=== PATIENT | male | born 1960 | race African-American/Black ===

== ENCOUNTER 2022-08-26 07:40 | Emergency (ER) | payer MEDICARE, OTHER ==
[2022-08-26] MEDS ORDERED: Ketorolac Tromethamine 30 MG/ML VIAL ONE (08:34)
== END 2022-08-26 09:58 | disposition home or self-care (01) ==
LOC: ERS 07:40
DX: M10.9 Gout, unspecified (principal); M54.9 Dorsalgia, unspecified; E78.00 Pure hypercholesterolemia, unspecified; K21.9 Gastro-esophageal reflux disease without esophagitis; I10 Essential (primary) hypertension; W18.30XA Fall on same level, unspecified, initial encounter; Z87.891 Personal history of nicotine dependence; Z79.899 Other long term (current) drug therapy
CPT/HCPCS: 72100; 72170; 96372; J1885

== ENCOUNTER 2022-10-18 06:19 | Emergency (ER) | payer MEDICARE, OTHER | END 2022-10-18 08:50 | disposition home or self-care (01) | LOC: ERS 06:19 | DX: S93.402A Sprain of unspecified ligament of left ankle, initial encounter (principal); S86.012A Strain of left Achilles tendon, initial encounter; K21.9 Gastro-esophageal reflux disease without esophagitis; I10 Essential (primary) hypertension; E78.5 Hyperlipidemia, unspecified; Z87.891 Personal history of nicotine dependence; W18.43XA Slipping, tripping and stumbling without falling due to stepping from one level to another, initial encounter ==

== ENCOUNTER 2022-11-27 05:03 | Observation (INO) | payer MEDICARE, OTHER ==
[2022-11-27] MEDS ORDERED: Ketorolac Tromethamine 30 MG/ML VIAL ONE (05:26)
[2022-11-27] MEDS ORDERED: Acetaminophen 500 MG TAB ONE ×2 (05:26)
[2022-11-27 05:32] LABS: #Eosinphils 0.1 thou/uL (0.0-0.7); #Monocytes 0.6 thou/uL (0.11-0.59); #Neutrophils 8.6 thou/uL (1.40-6.50); %Basophils 0.2 % (0.0-1.0); %Eosinophils 1.2 % (0.0-10.0); %Lymphocytes 17.8 % (21.0-51.0); %Monocytes 5.1 % (0.0-10.0); %Neutrophils 75.6 % (42.0-75.0); Hemoglobin 13.3 g/dL (14.0-18.0); Mean Corpuscular HGB CONC 33.9 g/dL (32.0-36.0); Mean Corpuscular Hemoglobin 31.1 pg (27.0-31.0); Mean Corpuscular Volume 91.8 fl (78.0-98.0); Platelet Count 279 10x3/uL (130-400); RBC Distribution Width 12.8 % (11.5-14.5); Red Blood Cell (RBC) Count 4.29 mill/uL (4.70-6.10); White Blood Cell (WBC) Count 11.4 10x3/uL (4.8-10.8)
[2022-11-27 05:49] LABS: ALT (SGPT) 12 U/L (8-55); AST (SGOT) 11 U/L (5-34); Albumin 4.2 g/dL (3.4-4.8); Alkaline Phosphatase 71 U/L (40-110); Anion Gap 16 mmol/L (10-20); BUN (Urea Nitrogen) 40 mg/dL (8.4-25.7); Bilirubin, Total 0.9 mg/dL (0.2-1.2); Calc. Creatinine Clearance 0 mL/min (70-130); Calcium 9.4 mg/dL (7.8-10.44); Carbon Dioxide 17 mmol/L (23-31); Chloride 113 mmol/L (98-107); Estimated GFR 37; Globulin 2.4 g/dL (2.4-3.5); Glucose 109 mg/dL (80-115); Potassium 5.3 mmol/L (3.5-5.1); Protein, Total 6.6 g/dL (5.8-8.1); Sodium 141 mmol/L (136-145)
[2022-11-27] MEDS ORDERED: Ondansetron PF 4 MG/2 ML Vial IVP PRN (06:45)
[2022-11-27] MEDS ORDERED: Ondansetron ODT 4 MG TAB SL PRN (06:45)
[2022-11-27] MEDS ORDERED: Calcium Carbonate 500 MG ChewTAB PO PRN (07:53)
[2022-11-27] MEDS ORDERED: Regadenoson 0.4 MG/5 ML SYRINGE ONE (08:39)
[2022-11-27] MEDS ORDERED: hydrALAZINE 20 MG/ML VIAL SLOW IVP SCH (09:00)
[2022-11-27 09:02] LABS: Troponin I Less than 0.010 ng/mL (< 0.028)
[2022-11-27] MEDS ORDERED: hydrALAZINE 20 MG/ML VIAL ONE (09:11)
[2022-11-27] MEDS: Lactated Ringer's 1,000 ML IV SCH ×2 (09:27→15:36)
[2022-11-27] MEDS ORDERED: Acetaminophen 325 MG TAB PO PRN (09:45)
[2022-11-27] MEDS ORDERED: Aspirin 325 MG TAB PO SCH (12:45)
[2022-11-27 12:49] LABS: Troponin I Less than 0.010 ng/mL (< 0.028)
[2022-11-27 13:52] VITALS: TEMP 97.8
[2022-11-27 13:55] VITALS: BMI 27.2
[2022-11-27 15:41] LABS: Anion Gap 16 mmol/L (10-20); BUN (Urea Nitrogen) 39 mg/dL (8.4-25.7); Calc. Creatinine Clearance 53 mL/min (70-130); Calcium 9.1 mg/dL (7.8-10.44); Carbon Dioxide 17 mmol/L (23-31); Chloride 112 mmol/L (98-107); Estimated GFR 39; Glucose 139 mg/dL (80-115); Potassium 4.8 mmol/L (3.5-5.1); Sodium 140 mmol/L (136-145)
[2022-11-27 16:25] VITALS: BP 159/87
[2022-11-27] MEDS ORDERED: Famotidine 20 MG TAB PO SCH (21:00)
[2022-11-27] MEDS ORDERED: Zolpidem Tartrate 5 MG TAB PO SCH (21:00)
[2022-11-27] MEDS ORDERED: Atorvastatin Calcium 40 MG TAB PO SCH (21:00)
[2022-11-28] MEDS ORDERED: Losartan 25 MG TAB PO SCH (09:00)
[2022-11-28] MEDS ORDERED: Losartan/Hydrochlorothiazide 100 mg/25 mg Tablet PO SCH (09:00)
[2022-11-28] MEDS ORDERED: Cholecalciferol 1,000 UNITS (25 MCG) TAB PO SCH (09:00)
[2022-11-28] MEDS ORDERED: Allopurinol 100 MG TAB PO SCH (09:00)
== END 2022-11-27 17:11 | disposition home or self-care (01) ==
LOC: ERS 05:03 → ERHOLD 06:28 → 2SW 13:11
PROVIDERS: ADMIT Family Medicine; ATTEND Family Medicine
DX: R07.89 Other chest pain (principal); I10 Essential (primary) hypertension; E87.5 Hyperkalemia; K21.9 Gastro-esophageal reflux disease without esophagitis; E78.5 Hyperlipidemia, unspecified; I25.10 Atherosclerotic heart disease of native coronary artery without angina pectoris; I25.2 Old myocardial infarction; F12.11 Cannabis abuse, in remission; Z86.73 Personal history of transient ischemic attack (TIA), and cerebral infarction without residual deficits; Z87.891 Personal history of nicotine dependence; Z79.899 Other long term (current) drug therapy; Z88.0 Allergy status to penicillin; Z88.2 Allergy status to sulfonamides; Z90.49 Acquired absence of other specified parts of digestive tract
CPT/HCPCS: 71045; 78452; 80048; 80053; 84484 ×2; 85025; 85379; 93005; 93017; 96372; 96374; 96375; 99285; A9500; G0378 ×2; J0360; 36415; J1650; J1885; J2785; J7120

== ENCOUNTER 2024-04-01 09:57 | Outpatient (CLI) | payer OTHER | END 2024-04-01 09:58 | disposition home or self-care (01) | LOC: ULT 09:57 | PROVIDERS: ATTEND Internal Medicine Nephrology | DX: I13.10 Hypertensive heart and chronic kidney disease without heart failure, with stage 1 through stage 4 chronic kidney disease, or unspecified chronic kidney disease (principal); N18.9 Chronic kidney disease, unspecified; I73.9 Peripheral vascular disease, unspecified; I63.9 Cerebral infarction, unspecified; K51.90 Ulcerative colitis, unspecified, without complications; M10.9 Gout, unspecified; E78.5 Hyperlipidemia, unspecified; K21.9 Gastro-esophageal reflux disease without esophagitis; M19.90 Unspecified osteoarthritis, unspecified site; N28.1 Cyst of kidney, acquired | CPT/HCPCS: 76770; 93976 ==